=== PATIENT | male | born 1980 | race Caucasian/White ===

== ENCOUNTER 2017-09-08 22:20 | Emergency (ER) | payer OTHER ==
[~2017-09-08] VITALS: Ht 170.2 cm; Wt 58.1 kg
[2017-09-08] MEDS ORDERED: TESSALON PERLE100 MG PO (23:57)
== END 2017-09-09 00:15 | disposition home or self-care (01) ==
LOC: ER 22:20
DX: J11.1 Influenza due to unidentified influenza virus with other respiratory manifestations (principal)